=== PATIENT | female | born 1975 | race African-American/Black ===

== ENCOUNTER 2024-01-17 16:52 | Emergency (ER) | payer BC ==
[~2024-01-17] VITALS: Ht 162.6 cm; Wt 81.2 kg
[2024-01-17 18:12] LABS: BASOPHILS % 0.3 % (0.0-1.0); EOSINOPHILS # (AUTO) 0.1 (0.0-0.4); EOSINOPHILS % 0.7 % (0.0-6.0); HEMATOCRIT 38.4 % (34.2-44.1); HEMOGLOBIN 13.7 g/dL (12.0-16.0); LYMPHOCYTES # (AUTO) 1.6 (1.0-3.2); LYMPHOCYTES % 17.6 % (18.0-39.1); MEAN CORPUSCULAR HEMOGLOBIN 29.8 pg (28-32); MEAN CORPUSCULAR HGB CONC 35.7 g/dL (31-35); MEAN CORPUSCULAR VOLUME 83.5 fL (81-99); MONOCYTES # (AUTO) 0.7 (0.2-0.8); MONOCYTES % 8.3 % (4.4-11.3); NEUTROPHILS # (AUTO) 6.5 (2.1-6.9); NEUTROPHILS % 72.8 % (38.7-80.0); PLATELET COUNT 270 x10e3/uL (140-360); RED CELL DISTRIBUTION WIDTH 12.5 % (11.7-14.4); WHITE BLOOD COUNT 8.96 x10e3/uL (4.8-10.8)
[2024-01-17 18:33] LABS: ANION GAP 14.3 mmol/L (8-16); BILIRUBIN,TOTAL 0.4 mg/dL (0.2-1.2); CALCIUM 8.7 mg/dL (8.4-10.2); CREATININE, SERUM 0.85 mg/dL (0.57-1.11); TOTAL PROTEIN 7.9 g/dL (6.5-8.1)
[2024-01-17 18:35] LABS: POTASSIUM 3.3 mmol/L (3.5-5.1)
[2024-01-17 18:41] LABS: TROPONIN I 0.001 ng/mL (0-0.300)
[2024-01-17] MEDS ORDERED: SODIUM CHLORIDE 0.9% 100 ML ONE (18:42)
[2024-01-17] MEDS ORDERED: IOPAMIDOL 370 MG/ML 100 ML INFUS..BTL INJ ONE (18:42)
[2024-01-17] MEDS: KETOROLAC TROMETHAMINE 30 MG/ML VIAL IV STA (19:15)
[2024-01-17] MEDS: METOCLOPRAMIDE HCL 10 MG/2ML VIAL IV STA (19:15)
[2024-01-17] MEDS: METHYLPREDNISOLONE SOD SUCC 125 MG/2ML VIAL IV STA (19:15)
[2024-01-17] MEDS: SODIUM CHLORIDE 0.9% 1000ML 1,000 ML IV STA (19:15)
[2024-01-17] MEDS: DIPHENHYDRAMINE HCL INJ 50 MG/ML VIAL IV STA (19:18)
[2024-01-17] MEDS ORDERED: DIPHENHYDRAMINE HCL INJ 50 MG/ML VIAL ONE (19:20)
[2024-01-17 20:13] VITALS: BP 150/92; O2SAT 100
== END 2024-01-17 20:15 | disposition home or self-care (01) ==
LOC: ER 16:59
DX: R06.00 Dyspnea, unspecified (principal); R51.9 Headache, unspecified; I10 Essential (primary) hypertension; E78.5 Hyperlipidemia, unspecified; Z11.52 Encounter for screening for COVID-19; Z98.84 Bariatric surgery status
CPT/HCPCS: 36415; 70496; 70498; 71260; 80053; 82550; 83690; 83880; 84484; 84702; 85025; 93005; 99284; J1200; J1885; J2765; J2919; J7030; J7050; Q9967; U0002